=== PATIENT | male | born 2000 | race Caucasian/White ===

== ENCOUNTER 2024-03-29 07:29 | Day surgery (SDC) | payer OTHER ==
[~2024-03-29] VITALS: Ht 175.3 cm; Wt 88.2 kg
[~2024-03-29 07:29] MED LIST: [UNRECOGNIZED DRUG - CODE] MM
[2024-03-29] MEDS: LR 1,000 ML IV SCH (08:14)
[2024-03-29] MEDS ORDERED: MIDAZOLAM INJ 2MG/2ML VIAL As Ordered ONE (08:37)
[2024-03-29] MEDS ORDERED: fentaNYL 100 MCG/2 ML INJECTION As Ordered ONE (08:37)
[2024-03-29] MEDS ORDERED: propofoL 500 MG/50 ML VIAL As Ordered ONE (08:39)
[2024-03-29] MEDS: LIDOCAINE 1% SDV 30ML VIAL As Ordered ONE (09:49)
[2024-03-29] MEDS: ceFAZolin SOD 2 GM in IV 1 EA IV ONE (09:49)
[2024-03-29] MEDS ORDERED: KETOROLAC 60MG 2ML VIAL As Ordered ONE (09:52)
[2024-03-29] MEDS ORDERED: ACETAMINOPHEN 1000MG 100ML IV BAG As Ordered ONE (09:52)
[2024-03-29] MEDS ORDERED: ONDANSETRON 4MG 2ML VIAL As Ordered ONE (09:52)
[2024-03-29] MEDS ORDERED: LIDOCAINE 2% 100MG/5ML SDV (FOR ANES.) As Ordered ONE (09:52)
[2024-03-29] MEDS ORDERED: propofoL 200 MG/20 ML VIAL As Ordered ONE (10:05)
[2024-03-29] MEDS ORDERED: oxyCODONE 5MG TAB PO PRN (11:05)
[2024-03-29] MEDS ORDERED: ONDANSETRON 4MG 2ML VIAL IV PRN (11:05)
[2024-03-29] MEDS ORDERED: fentaNYL 100 MCG/2 ML INJECTION IV PRN (11:05)
[2024-03-29 11:49] VITALS: BP 136/77; TEMP 98; O2SAT 96
== END 2024-03-29 12:30 | disposition home or self-care (01) ==
LOC: M SDC 07:29
PROVIDERS: ATTEND Podiatrist Foot & Ankle Surgery
DX: S93.491A Sprain of other ligament of right ankle, initial encounter (principal); X50.1XXA Overexertion from prolonged static or awkward postures, initial encounter; Y93.B9 Activity, other involving muscle strengthening exercises; Y92.9 Unspecified place or not applicable; Y99.9 Unspecified external cause status; Z88.0 Allergy status to penicillin
CPT/HCPCS: 27698; 76000; 88300; C1713; J0131; J0665; J0690; J1100; J1885; J2250; J2405; J3010